=== PATIENT | male | born 1935 | race Caucasian/White ===

== ENCOUNTER 2018-08-16 15:05 | Day surgery (SDC) | payer MEDICARE, OTHER ==
[~2018-08-16] VITALS: Ht 182.9 cm; Wt 88.5 kg
[2018-08-16] MEDS ORDERED: SIMV20TA2 PO (15:40)
[2018-08-16] MEDS ORDERED: AMLO25TA PO (15:40)
[2018-08-16] MEDS ORDERED: CLAR10CA3 PO (15:40)
[2018-08-16] MEDS ORDERED: FLOM0.4C39 PO (15:40)
[2018-08-16] MEDS ORDERED: LOSA100T50 PO (15:40)
[2018-08-16] MEDS ORDERED: LR 1,000 ML IV SCH (15:45)
[2018-08-16] MEDS ORDERED: PROPOFOL 200 MG/20 ML VIAL As Ordered ONE (17:08)
[2018-08-16] MEDS ORDERED: LIDOCAINE 2% INJ 100 MG/5 ML SDV (FOR ANES.) As Ordered ONE (17:08)
[2018-08-16] MEDS ORDERED: KETAMINE HCL 200 MG/20 ML VIAL As Ordered ONE (17:10)
[2018-08-16] MEDS ORDERED: dexameTHASONE 4 MG/ML 1ML VIAL (J1100) As Ordered ONE (17:38)
[2018-08-16] MEDS ORDERED: ONDANSETRON 4MG/2ML VIAL (J2405) As Ordered ONE (17:38)
[2018-08-16] MEDS ORDERED: LIDOCAINE 1% SDV INJ 30 ML VIAL As Ordered ONE (17:39)
[2018-08-16] MEDS ORDERED: AMIODARONE 150MG/3ML INJ (J0282) As Ordered ONE (17:39)
[2018-08-16] MEDS ORDERED: ISOVUE-300 61% 50ML VIAL (Q9967) As Ordered ONE (17:39)
[2018-08-16] MEDS ORDERED: BACITRACIN PWD 50,000 UNITS VIAL As Ordered ONE (17:40)
--- NOTE | 2018-08-16 19:12 | RO ---
DATE OF PROCEDURE: 08/16/2018 PREOPERATIVE DIAGNOSES: 1. Pacemaker battery depletion. 2. Complete heart block. POSTOPERATIVE DIAGNOSES: 1. Pacemaker battery depletion. 2. Complete heart block. PROCEDURE: 1. Explantation of depleted pacemaker pulse generator. 2. Testing of old atrial and ventricular pacing leads. 3. Implantation of new dual-chamber pulse generator. IMPLANTING [employer] JUDGE: Dr. John Loera ANESTHESIOLOGIST: Dr. Singh TYPE OF ANESTHESIA: Monitored local anesthesia. DESCRIPTION OF PROCEDURE: In the fasting state, following informed consent and Ancef 2 grams IV premedication, the patient was taken to the operating theater. Numerous skin electrodes were applied to facilitate continuous electrocardiographic monitoring. Self-adhesive cardioverting/defibrillating/noninvasive transcutaneous pacing pads were applied in an anteroposterior configuration and connected to a bedside cardioverter defibrillator/pacemaker. The left subclavian region site of his original pacemaker was then prepped and draped in the usual fashion. The skin over the device was infiltrated with 1% Xylocaine and a 5 cm linear incision was made over the site of the pacemaker battery. This was carefully explanted, and his atrial and ventricular pacing leads were then tested. The patient has no intrinsic ventricular activity at this time. The ventricular lead ([employer], model number 1646T, serial number [id number]) measurements were: Stimulation threshold 0.7 V/0.4 ms/impedance 660 ohms. The R wave amplitude was 12.12 mV (PVC). The atrial lead ([employer], model number 1688T, serial number [id number]) measurements were: Stimulation threshold 0.9 V/0.4 ms/impedance 385 ohms. The P wave amplitude measured 3.0 mV. The old pacer pocket was thoroughly irrigated with a bacitracin solution. As his pacemaker was actually very superficial, we elected to create a new pacemaker pocket below the old one to prevent pacemaker erosion. The new pulse generator was placed in the pocket and secured in position with a suture through the upper right-hand corner of the epoxy header. The subcutaneous tissues were approximated using a running chromic suture, and the skin was closed using asuncion. The patient tolerated the procedure well and was returned to the recovery room in good condition. No apparent complications. Estimated blood loss 5 mL. Our plan is to allow the patient to go home once he is able to ambulate and eat. We did place a pressure dressing over his pulse generator as we created a new pocket and hoping to avoid hematoma. We will have him come to our office tomorrow to have his pressure dressing changed to a superficial dry dressing. Will subsequently give him an office followup visit for wound check and staple removal in 7-10 days. DUDLEY
[2018-08-16] MEDS ORDERED: TAMSULOSIN 0.4 MG CAP PO SCH (21:00)
[2018-08-16] MEDS ORDERED: LORATADINE 10 MG TAB PO SCH (21:00)
[2018-08-16] MEDS ORDERED: SIMVASTATIN 20 MG TAB PO SCH (21:00)
[2018-08-16] MEDS ORDERED: LOSARTAN 50 MG TAB PO SCH (21:00)
[2018-08-16 21:48] VITALS: BP 130/111
[2018-08-16 21:55] VITALS: BP 132/82
[2018-08-16 22:13] VITALS: BP 148/78
[2018-08-16 22:30] VITALS: BP 154/72
[2018-08-16 23:24] VITALS: BP 121/65
[2018-08-17 00:55] VITALS: BP 124/66
[2018-08-17 02:00] VITALS: BP 122/62
[2018-08-17 03:28] VITALS: BP 115/59
[2018-08-17 07:04] VITALS: BP 123/60
[2018-08-17 07:07] LABS: HEMATOCRIT 33.5 % (42.0-52.0); MEAN CORPUSCULAR HEMOGLOBIN 32.7 pg (27.0-33.0); MEAN CORPUSCULAR HGB CONC 32.8 g/dl (32.0-36.5); MEAN CORPUSCULAR VOLUME 99.7 fl (80.0-96.0); PLATELET COUNT, AUTOMATED 169 10^3/uL (150-450); RED BLOOD COUNT 3.36 10^6/uL (4.30-6.10); WHITE BLOOD COUNT 7.9 10^3/uL (4.0-10.0)
--- NOTE | 2018-08-17 12:44 | IPN ---
CARDIOLOGY PROGRESS NOTE DATE: 08/17/2018 SUBJECTIVE: The patient was monitored overnight following his pacemaker battery replacement yesterday late afternoon, because of some unsteady gait and weakness related to intravenous (IV) sedation. Overnight, he also had some oozing from his pacer incision that required a several redressings of his wound. At this point, he reports having mild localized incisional discomfort but has been up walking in the [place] with a walker without other chest discomfort, shortness of breath, or dizziness. OBJECTIVE: Tall, elderly male of medium body build, lying comfortably with head of bed elevated 30 degrees. No pallor or cyanosis. Heart rate 75 beats per minute, blood pressure 123/60, respiratory rate 20, oxygen saturation 97% on room air. He was afebrile. Trachea midline. Neck veins were not elevated. Respirations were comfortable with symmetrical chest expansion. His pressure dressing was removed without evidence of any further bleeding. A small OpSite dressing was applied. There was no sign of hematoma or erythema. BLOOD WORK: Hemoglobin this morning was 11, not significantly changed from yesterday preoperatively. His white blood cell count and platelet counts were also stable. His PTT this morning was normal at 24. IMPRESSION/PLAN: 1. Postoperative weakness: Medication induced. Appears to be bright and orientated and able to ambulate with his walker today without problem. I believe it will be safe for him to go home. 2. Postoperative incisional bleeding: As mentioned, had some bleeding requiring several dressing changes overnight, but this appears to have stopped at this time. No sign of a hematoma. Hemoglobin significantly changed from a preoperative study. 3. Pacemaker battery depletion: Minimal incisional discomfort following replacement yesterday. The wound currently appears to be healing well. He will be given a clinic visit in our office for August 23, 2018 at 12:45 p.m. to check his wound and remove asuncion. He has been encouraged perform only light activities of daily living with his left arm until his asuncion removed. He is also requested to avoid getting his incision wet for the time being. We encouraged him to promptly contact us should he notice any further discharge, swelling, or redness. 4. Complete heart block/dual-chamber pacemaker in situ: No symptoms of dizziness with ambulation, as mentioned. His device appears to be functioning appropriately. Current resting heart rate is physiologic. 5. Hypertensive heart disease (benign without heart failure): No symptoms or signs of congestion, and his current blood pressure is well-controlled with combination losartan 100 mg nightly, amlodipine 2.5 mg nightly, and Flomax 0.4 mg by mouth nightly. As mentioned, he will be discharged home on his chronic medications, which also included simvastatin 20 mg by mouth nightly and Claritin/loratadine 10 mg by mouth nightly.
== END 2018-08-17 12:10 | disposition home or self-care (01) ==
LOC: M SDC 15:05 → M MS5PR 21:09 → M SDC 08-17 12:10
PROVIDERS: ATTEND Internal Medicine Cardiovascular Disease
DX: Z45.010 Encounter for checking and testing of cardiac pacemaker pulse generator [battery] (principal); I44.2 Atrioventricular block, complete; I11.9 Hypertensive heart disease without heart failure; I35.8 Other nonrheumatic aortic valve disorders; R60.0 Localized edema; E78.5 Hyperlipidemia, unspecified; Z87.891 Personal history of nicotine dependence; Z79.899 Other long term (current) drug therapy
CPT/HCPCS: 33228; 36415; 85027; 85730; C1785; G0378; J0690; J1100; J2405